=== PATIENT | male | born 1940 | race Caucasian/White ===

== ENCOUNTER 2020-10-16 20:46 | Emergency (ER) | payer OTHER, BC ==
[~2020-10-16] VITALS: Ht 177.8 cm; Wt 68.0 kg
[2020-10-16 20:54] VITALS: Ht 177.8 cm; Wt 68.0 kg
[2020-10-16 21:35] LABS: BASOPHIL % 0.9 % (0.2-1.5); PLATELET COUNT 188 x10^3mcL (152-348); RED CELL DISTRIBUTION WIDTH 14.2 % (12.1-16.2)
[2020-10-16 21:46] LABS: CALCIUM 8.3 mg/dL (8.5-10.1); CARBON DIOXIDE 30.8 mmol/L (21-32); CHLORIDE SERUM 104 mmol/L (98-107); CREATININE SERUM 0.8 mg/dL (0.7-1.3); GLUCOSE SERUM 116 mg/dL (74-106); POTASSIUM SERUM 3.7 mmol/L (3.5-5.1); SODIUM SERUM 139 mmol/L (136-145)
[2020-10-16 21:51] LABS: ALKALINE PHOSPHATASE 789 U/L (46-116); ALT/SGPT 70 U/L (16-63); AST/SGOT 130 U/L (15-37); BILIRUBIN TOTAL 1.5 mg/dL (0.20-1.00); TOTAL PROTEIN, SERUM 6.3 g/dL (6.4-8.2)
[2020-10-16 21:54] LABS: rbc morphology (normal/abnorm) ABNORMAL (NORMAL)
[2020-10-17] MEDS ORDERED: CEPHALEXIN500 MG PO (00:02)
[2020-10-17 00:51] VITALS: BP 108/75
== END 2020-10-17 00:51 | disposition home or self-care (01) ==
LOC: ED 20:46
PROVIDERS: Emergency Medicine
DX: N49.2 Inflammatory disorders of scrotum (principal); I10 Essential (primary) hypertension
CPT/HCPCS: J2001; Q9967